=== PATIENT | male | born 1955 | race Caucasian/White ===

== ENCOUNTER 2020-01-04 06:09 | Day surgery (SDC) | payer OTHER ==
[~2020-01-04] VITALS: Ht 160 cm; Wt 93.2 kg
[~2020-01-04 06:09] MED LIST: SODIUM CHLORIDE 0.9% 1,000 ML ONE
[2020-01-04] MEDS ORDERED: ALBUTEROL SULFATE 2.5 MG/0.5 ML NEB SOLUTION NEB ONE (06:10)
[2020-01-04] MEDS ORDERED: LIDOCAINE 2% 30 ML JELLY TP ONE (06:10)
[2020-01-04] MEDS ORDERED: BENZOCAINE 20% 50 MCG/SPRAY 57 GM TP ONE (06:10)
[2020-01-04] MEDS ORDERED: LIDOCAINE 4% 50 ML SOLUTION TP ONE (06:10)
[2020-01-04] MEDS ORDERED: SODIUM CHLORIDE 0.9% 1,000 ML IV ONE (06:30)
[2020-01-04] MEDS ORDERED: LEVO-72 PO (07:03)
[2020-01-04] MEDS ORDERED: POLY119P8 PO (07:03)
[2020-01-04] MEDS ORDERED: ATOR20TA65 PO (07:03)
[2020-01-04] MEDS ORDERED: FAMO20TA8 PO (07:03)
[2020-01-04] MEDS ORDERED: CYAN50008 PO (07:03)
[2020-01-04] MEDS ORDERED: DULO60CA64 PO (07:03)
[2020-01-04] MEDS ORDERED: D-ME473S53 PO (07:03)
[2020-01-04] MEDS ORDERED: PRED10TA3 PO (07:03)
[2020-01-04] MEDS ORDERED: LINA290C PO (07:03)
[2020-01-04] MEDS ORDERED: BUDE10.2 IH (07:03)
[2020-01-04] MEDS ORDERED: METF-960 PO (07:03)
[2020-01-04] MEDS ORDERED: MONT10TA26 PO (07:03)
[2020-01-04] MEDS ORDERED: LISI10TA7 PO (07:03)
[2020-01-04] MEDS ORDERED: OMEP20 PO (07:03)
[2020-01-04] MEDS ORDERED: ASPI-1111 PO (07:03)
[2020-01-04] MEDS ORDERED: PREG200C28 PO (07:03)
[2020-01-04] MEDS ORDERED: ALBU8HFA IH (07:03)
[2020-01-04] MEDS ORDERED: FLUT16H NASAL (07:03)
[2020-01-04] MEDS ORDERED: FentaNYL CITRATE-PF 100 MCG/2 ML VIAL ONE (07:28)
[2020-01-04] MEDS ORDERED: MIDAZOLAM HCL 2 MG/2 ML VIAL ONE (07:28)
[2020-01-04] MEDS ORDERED: MethylPREDNISolone SOD SUCC 125 MG/2 ML VIAL ONE (08:26)
[2020-01-04] MEDS ORDERED: MethylPREDNISolone SOD SUCC 125 MG/2 ML VIAL IVP ONE (08:45)
[2020-01-04 09:24] LABS: PROTHROMBIN TIME 10.4 SEC (9.4-11.6)
[2020-01-04] MEDS ORDERED: OXYGEN THERAPY IH SCH (20:00)
== END 2020-01-04 10:50 | disposition home or self-care (01) ==
LOC: SURGERY 06:09
PROVIDERS: ATTEND Internal Medicine Critical Care Medicine
DX: R05 Cough (principal); R04.2 Hemoptysis; J34.89 Other specified disorders of nose and nasal sinuses; J38.4 Edema of larynx; B37.0 Candidal stomatitis; J98.8 Other specified respiratory disorders; I10 Essential (primary) hypertension; E78.00 Pure hypercholesterolemia, unspecified; Z90.49 Acquired absence of other specified parts of digestive tract; Z79.899 Other long term (current) drug therapy
CPT/HCPCS: 31623; 31624; 36415; 71045; 85610; 85730; 87070; 87101; 87206; 87220; J2250; J2930; J3010; J7030; 87015; 87205; 88108; 88312